=== PATIENT | male | born 1980 | race Caucasian/White ===

== ENCOUNTER 2021-03-26 12:19 | Inpatient (IN) | payer OTHER ==
[~2021-03-26] VITALS: Ht 188 cm; Wt 93.0 kg
--- NOTE | ~2021-03-26 | EEG ---
[facility] [place] [address] ELECTROENCEPHALOGRAM Name: WARD CHRISTOPHER Room #: 448-P ADM IN M.R.#: [id number] Admission: 03/26/21 Attend Phys: Nithya Santa Discharge: Date of : 84 Report #: [id number] THIS REPORT FOR: //name// DATE OF SERVICE: 03/31/2021 This patient was evaluated for the possibility of seizure. EEG was done by placing the electrode by standard 10-20 system of electrode placement. Both referential and sequential montages were used for recording. Background activity in this patient's EEG is about 9 Hz and 30 microvolt. Lot of muscle artifact is present. The patient became drowsy and that is associated with bilateral slowing. Photic stimulation is unremarkable. Throughout the record, no active epileptiform activity was noticed. IMPRESSION: This patient's EEG does not show any active epileptiform activity. By: 1405 1421 Omar Wooten MD /nt
[2021-03-26 12:35] VITALS: BP 147/85
[2021-03-26 13:19] LABS: ABSOLUTE NEUTROPHILS 5.6 thou/uL (1.4-8.2); HEMATOCRIT 36.7 % (42.0-52.0); HEMOGLOBIN 12.4 gm/dL (14.0-18.0); LYMPHOCYTES 20.8 % (24.0-44.0); MCHC 33.6 g/dL (28.0-37.0); MCV 86.2 fL (80.0-100.0); MONOCYTES 8.9 % (1.0-8.0); PLATELET COUNT 318 thou/uL (150-400); POLYS 67.3 % (36.0-66.0); RBC 4.26 mil/uL (4.50-6.00); RDW 14.5 % (10.5-14.5); WBC 8.3 thou/uL (4.0-11.0)
[2021-03-26 13:28] LABS: CALCIUM 8.9 mg/dL (8.5-10.1); POTASSIUM 3.7 mmol/L (3.5-5.1)
[2021-03-26 13:34] LABS: ALBUMIN 3.5 g/dL (3.4-5.0); TOTAL BILIRUBIN 0.3 mg/dL (0.2-1.0); TOTAL PROTEIN 7.6 g/dL (6.4-8.2)
[2021-03-26 14:05] LABS: AMP/METHAMP POSITIVE (Negative); BARBITURATES Negative (Negative); BENZODIAZEPINES Negative (Negative); COCAINE Negative (Negative); METHADONE Negative (Negative); OPIATES Negative (Negative); PCP Negative (Negative)
[2021-03-26 19:37] VITALS: BP 151/79
[2021-03-26 20:00] VITALS: BP 149/77
[2021-03-26 21:00] VITALS: BP 127/74
--- NOTE | 2021-03-27 02:54 | NUR ---
PT ADMITTED TO THE UNIT WITH C/O SWOLLEN LT ANKLE AND PAIN.PT CAME IN SEDATED AND UNABLE TO COMMUNICATE WITH STAFF.PT ASKED FOR PAIN MEDS AND TRAMADOL PRN GIVEN.PT GOT UP AGITATED AND ASKING FOR ANOTHER MED AT 0200.IT WAS NOT TIME FOR THE NEXT TRAMADOL AND MAURIZIO GRAYSON NOTIFIED AND FENTANYL ONETIME GIVEN ORDERED.PT C/O IMMEDIATELY OF FENTANYL NOT WORKING AND ASKED NURSE TO NOTIFY DR.MAURIZIO GRAYSON NOTIFIED.PT AGITATED AND PROMISING TO DO SOMETHING TO MAKE HIMSELF COMFORTABLE.PT POSITIVE FOR METH AND MARIJUANA.PIPELINE DISPATCHER NOTIFIED AND PIPELINE DISPATCHER SPOKE WITH PT ON HOW TO MANAGE HIS PAIN AND PT DENIED HAVING ANY MEDICATIONS WITH HIM. PT IS ON ROOM AIR.IV ACCESS ON RT FA SL.WILL CONTINUE TO MONITOR PER POC
[2021-03-27 08:50] VITALS: BP 120/65
[2021-03-27 15:05] VITALS: BP 156/65
--- NOTE | 2021-03-27 18:00 | NUR ---
Patient had a CT of left ankle completed today. He has voiced pain in left ankle 02/27 and has refused toradal and tylenol. Dr. Ramirez spoke with him today regarding pain medications and that toradol is what can be given to him. He is very upset and wanting Diualdid. He has been offered pain medication throughout shift and has refused each time. Tolerated IV ABT well.
[2021-03-27 20:13] VITALS: BP 134/76
--- NOTE | 2021-03-28 02:20 | NUR ---
ASSUMED PTR CARE 1900. PT IS ALERT AND ORIENTED X4. PT IS HAS +2 SWELLING TO THE LEFT ANKLE WITH A LITTLE ABRASIONS TO THE FOOT AND R TOE. PT C/O HOW INEFFECTIVE PO PAIN MEDS ARE AND WOULD PREFER IV PAIN MEDS. PT WAS INFORMED OF AVAILABLE PRN PIAN MEDS PER THE EMAR. PT IS WAS COOPERATIVE. SEIZURE PRECAUTIONS IN PLACE. BED ON LOWEST LOCKED POSITION WITH BED ALARM ON AND CALL LIGHT WITHIN REACH. WILL CONTINUE TO MONITOR.
[2021-03-28 07:23] VITALS: BP 140/91
--- NOTE | 2021-03-28 15:09 | NUR ---
At start of shift patient was yelling out in the hallway for nurse after nurse was in the room 15 mins prior, patient was told this is a hospital and he can use his call button to reach the nurse and that yelling in the halls is not the way to get her there. No issues after talking with patient this shift. [facility] called and confirmed that patient takes oxycodone 10 mg prn q8hrs and morphine 15mg q 12hrs prn at home. Dr. Ramirez notified of the medications and she wants him just to continue norco and toradol prn and notified of tomorrows surgery of hardware removal. IV nurse placed a new left forearm IV. NPO after midnight for left foot hardware removal. Vanco through tomorrow. Tolerating IV ABT well.
[2021-03-28 16:23] VITALS: BP 141/88
[2021-03-28 20:08] VITALS: BP 136/81
[2021-03-29 01:48] LABS: ABSOLUTE NEUTROPHILS 2.4 thou/uL (1.4-8.2); BASOPHILS 1.2 % (0.0-2.0); EOSINOPHILS 4.6 % (0.0-3.0); HEMATOCRIT 39.6 % (42.0-52.0); HEMOGLOBIN 12.9 gm/dL (14.0-18.0); LYMPHOCYTES 37.2 % (24.0-44.0); MCH 28.6 pg (26.0-34.0); MCHC 32.5 g/dL (28.0-37.0); MCV 87.8 fL (80.0-100.0); MONOCYTES 10.7 % (1.0-8.0); PLATELET COUNT 332 thou/uL (150-400); POLYS 46.3 % (36.0-66.0); RBC 4.51 mil/uL (4.50-6.00); WBC 5.1 thou/uL (4.0-11.0)
--- NOTE | 2021-03-29 02:06 | NUR ---
[facility] 1905. PT IS ALERT AND ORIENTED X4. PT IS CALM AND COOPERATIVE. PT WAS INFORMEED ABOUT BEING NPO AT MIDNIGHT ADN PT VERBALIZE UNDERSTANDING. PT IS COMPLIANT WITH NEW DIET ORDER. PT TOLERATING RA. MEDS GIVEN PER EMAR ODERS. VS ARE WITHIN NORMAL RANGE. FALL PRECAUTIONS IN PLACE WITH CALL LIGHT WITHIN REACH. WILL CONTINUE TO MONITOR.
--- NOTE | 2021-03-29 05:03 | HC ---
[facility] [place] [address] CONSULTATION Name: WARD CHRISTOPHER Room #: 458-P ADM IN M.R.#: [id number] Admission: 03/26/21 Attend Phys: Nithya Perry Discharge: Date of : 84 Report #: [id number] THIS REPORT FOR: cc: FAM - No family physician/PCP FAM - No family physician/PCP Orlando Cooley MD ~ DATE OF SERVICE: 03/28/2021 INFECTIOUS DISEASE CONSULTATION ATTENDING PHYSICIAN: Dr. Perry. REASON FOR EVALUATION: Left foot and ankle inflammatory process with severe pain going on for several weeks to months. HISTORY OF PRESENT ILLNESS: He notes 08/2020, apparently had a foot and ankle surgery. Since that time, he has had multiple issues where it became very painful. It is felt to have a secondary infection, had been treated with antibiotics. Over the course of last few hours prior to his admission, it became extremely painful. It is not clear that he had fevers or chills. Did note it was severe enough that he was unable to bear weight or ambulate. Did present to the emergency room. Evaluation was undertaken. Lactic acid is 0.7. Plain films of the foot and ankle showed prior internal fixation of the calcaneal fracture, diffuse soft tissue swelling about the left ankle. CPK was 271. Positive drug screen for amphetamine, methamphetamine and marijuana. Arterial and venous Dopplers were otherwise unremarkable. Coronavirus testing was negative. Blood cultures collected at time of admission were sterile thus far. CT imaging shows irregularity of the bone of the dorsal calcaneus, but cannot exclude osteomyelitis or septic arthritis. Sed rate was 25. He was initially on combination therapy with vancomycin and clindamycin. Presently, he complains of severe pain. ALLERGIES: LISTED TO DILANTIN, CARBAMAZEPINE, OXCARBAZEPINE, DULOXETINE. CURRENT MEDICATIONS: Include Ibuprofen, Toradol, vancomycin, clindamycin, levetiracetam, enoxaparin, tramadol, zolpidem, ondansetron as needed. PAST MEDICAL HISTORY: Notable for seizure disorder. SOCIAL HISTORY: Denies ethanol or tobacco, ____ polysubstance illicit drug use. FAMILY HISTORY: Noncontributory. REVIEW OF SYSTEMS: Otherwise, unremarkable. PHYSICAL EXAMINATION: [address] [address] CONSULTATION Name: WARD CHRISTOPHER Room #: 458-P [facility] IN ..#: [id number] Admission: 03/26/21 Attend Phys: Nithya Perry Discharge: Date of : 84 Report #: [id number] GENERAL: He is in moderate distress secondary to the heel pain. He is generally lucid, appears to be well nourished. VITAL SIGNS: Temperature 97.7, pulse 75, respirations 16, blood pressure 140/91. SKIN: Warm, extensive tattoos. HEENT: Normocephalic. Extraocular muscles intact. NECK: Supple. LUNGS: Generally clear to auscultation bilaterally. HEART: Regular. I do not appreciate a murmur. ABDOMEN: Soft, nontender. No peritoneal signs. EXTREMITIES: Left lower extremity was evaluated. His significant swelling is associated with erythema. It is exquisitely tender to touch. There is a superficial abrasion area. There was no draining from it. GENITOURINARY AND RECTAL: Deferred. LABORATORY DATA: Sed rate of 25. CT as described above. CRP of 77.7. Blood cultures sterile thus far. Electrolytes: Sodium 138, potassium 3.7, chloride 104, bicarbonate 25, anion gap of 9, BUN and creatinine 23 and 1.0. LFTs unremarkable. Albumin 3.5, total protein 7.6. CBC: White count of 8.3, H and H 12.4 and 36.7, platelets of 318. ASSESSMENT AND PLAN: Left distal lower extremity inflammatory process. has skin and soft tissue infection, would be concerned about a deeper infection including the bone. Given the repeated nature of the episodes due to hardware, is unable to undergo MRI. We will continue empiric therapy, presumed gram-positive etiology. I think it is reasonable and see how he does clinically. Pain is a significant issue with him. May benefit from having a surgical evaluation. Thank you for allowing me to participate. <ELECTRONICALLY SIGNED> By: Orlando Cooley MD 03/29/21 0503 0656 [id number] Orlando Cooley MD /nt
--- NOTE | 2021-03-29 11:11 | NUR ---
VAT CONSULTED FOR PICC PLACEMENT. RIGHT UPPER BASILIC PICC TRIMMED 43CM/1CM EXTERNAL. TIP LOCATION VERIFIED WITH [employer] TECHNOLOGY. PT TOLERATED WELL. RELEASED FOR USE, PER HOSPITAL VASCULAR ACCESS POLICY.
--- NOTE | 2021-03-29 13:43 | NUR ---
PT ADMITTED RELATED TO CELLULITIS. CM REVEIWED CHART AND SPOKE WITH CARE TEAM. CM MET WITH PT AT BEDSIDE THIS DAY. PT APPEARES TO BE A&O X4. CM ROLE INTRODUCED. PT INDICATE THAT HE HAD BEEN STAYING AT [facility]. 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 PT INDICATED HE PCP IS DR. AVILEZ AND HE USES A [facility] FOR HIS PERSCRIPTIONS. PT INDICATED THAT HE HAD BEEN CLEAN BUT THAT HE DID METH DAY OF ADMIT SO THAT HE COULD GET INTO A REHAB SO HE COULD GET INTO A SENIOR CARE HOUSE. PT INDICATED THAT HE HAS NOTIFIED HIS VALVE TECHNICIAN OF HIS ADMISSION. PT WAS COMPLAINING OF HIS RASTAFARIAN LOCKING AND NEEDING STRONGER PAIN MEDS. CM NOTIFIED PT'S NURSE WHO HAD REACHED OUT TO HOSPITALIST. PT THREATENING TO LEAVE AMA.
--- NOTE | 2021-03-29 15:10 | NUR ---
Assumed pt care at 7am.Pt in bed very angry and frustrated about pain med. Emotional support given.Dr Ramirez notified and order noted.Fentanyl ivp given with relief.Pt went for mri and returned to room after one hour. At 1510,pt left for surgery per bed in stable condition.Will continue to monitor.
[2021-03-29 23:00] VITALS: BP 148/82
[2021-03-29 23:15] VITALS: BP 134/83
[2021-03-29 23:30] VITALS: BP 143/82
[2021-03-29 23:45] VITALS: BP 137/76
[2021-03-30] VITALS (44 sets, daily range): BP systolic 99–144; BP diastolic 43–91
--- NOTE | 2021-03-30 07:46 | NUR ---
ASSUME CARE 2300 FROM PACU. PT/VITALS STABLE. COMSISTENT PAIN INDICATED WITH MODERATE RELIEF FROM PAIN MEDICATION. TOLERATES ACTIVITY MODERATEY. PT IS CALM AND COOPERATIVE. PRECEDEX TITRATED DOWN AND TURED OFF ABOUT 0530 THIS AM. PT IS DOING FINE ON PAIN MEDS AND NO COMBATIVENESS NOTED. PLAN IS TO TRANSFER PT TO A LESS CRITICAL FLOOR TODAY. WILL CONTINUE TO MONITOR AND FOLLOW WITH POC
--- NOTE | 2021-03-30 07:52 | NUR ---
0705HRS - DURING ASSESSMENT, PT DEMANDED BREAKFAST AND A SODA.
--- NOTE | 2021-03-30 09:32 | NUR ---
Discussed during am unite rounds. possible able to move out of icu today.
--- NOTE | 2021-03-30 11:35 | NUR ---
1100HRS - PT'S FATHER CALLED. WAS UPDATED ON PT'S STATUS.
--- NOTE | 2021-03-30 15:34 | O ---
[facility] [place] [place] [address] OPERATIVE REPORT Name: WARD CHRISTOPHER Room #: 246-P ADM IN M.R.#: [id number] Admission: 03/26/21 Attend Phys: Nithya Perry Discharge: Date of : 84 Report #: [id number] THIS REPORT FOR: cc: FAM - No family physician/PCP FAM - No family physician/PCP Earl Alston MD ~ DATE OF SERVICE: 03/29/2021 SERVICE: Orthopedics. FACILITY: [facility]. SURGEON: Earl Alston MD ASSISTANTS: 1. Russell Portillo. 2. Tanvi Gomez NP PREOPERATIVE DIAGNOSES: 1. Retained hardware, left calcaneus. 2. Status post open reduction internal fixation, left calcaneus fracture. 3. Posttraumatic arthritis, left subtalar joint. 4. Septic arthritis, left subtalar joint. 5. Cellulitis, left heel. 6. Polysubstance abuse. POSTOPERATIVE DIAGNOSES: 1. Retained hardware, left calcaneus. 2. Status post open reduction internal fixation, left calcaneus fracture. 3. Posttraumatic arthritis, left subtalar joint. 4. Septic arthritis, left subtalar joint. 5. Cellulitis, left heel. 6. Polysubstance abuse. PROCEDURES: 1. Irrigation and debridement, left subtalar joint and calcaneus. 2. Hardware removal, left calcaneus. COMPLICATIONS: None. DRAINS: None. SPECIMENS: 1. Subtalar joint fluid for culture. 2. Subtalar joint tissue for culture. 3. Subtalar joint tissue for permanent pathology. [facility] [address] [place] [address] OPERATIVE REPORT Name: WARD CHRISTOPHER Room #: 246-P ADM IN M.R.#: [id number] Admission: 03/26/21 Attend Phys: Nithya Perry Discharge: Date of : 84 Report #: [id number] HISTORY: Patient is a 40-year-old male who sustained a calcaneal fracture in 08/2020 and underwent open reduction internal fixation at [facility] in [place]. He migrated to [facility] looking to meet in person with his production officer when a recurrent episode of a heel cellulitis consistent with deep infection occurred and he presented to [facility]. He had previously been treated in [place], apparently with IV antibiotics, but the infection had persisted on 2 or 3 episodes. He was admitted to the hospital. 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 We did discuss that he had posttraumatic arthritis as well and that this could be the primary etiology for the advanced imaging findings; however, with the risk of continued infection plans were made for irrigation and debridement with hardware removal. Risks, benefits, alternatives and indications were discussed with him in detail. Risks include but not limited to pain, bleeding, infection, injuring nerves or blood vessels, persistent pain despite surgical intervention, failure of the procedure, need for further surgery, arthritis as well as complications related to anesthesia. Despite the risks, he wished to proceed. PROCEDURE IN DETAIL: After left lower extremity was correctly identified in the preoperative holding area as the operative extremity, the patient was taken to the operating room where general anesthesia was induced without complications. He was padded appropriately. Prophylactic antibiotics were already being administered during the hospitalization. Tourniquet was applied to left leg. Left lower extremity was prepped and draped in standard sterile fashion. It was exsanguinated via elevation and then tourniquet was inflated. The previous lateral incision on the hindfoot was utilized and full thickness skin flaps were developed down to the calcaneus and the subtalar joint, which was opened and then culture was taken of the fluid. The 3 threaded pins were removed. The small frag screw was removed after it was exposed. Debridement was performed of the subtalar joint with irrigation as well as a debridement of the soft tissue synovitis. Some tissue was sent for culture as well as pathology. He had 3 headless compression screws that were present as well and so these were exposed initially with stab incisions, the first was removed successfully. The second 2 were buried beneath the bone and could not be successfully removed in a percutaneous fashion, so the stab incisions were extended longitudinally and dissection was taken down to the bone. A curet and gouge were used to resect the bone around the head of the screw and then they were eventually able to be backed out. These wounds were then thoroughly irrigated again and fluid was lavaged through the joint out the calcaneal incisions. There was no purulence [address] [address] OPERATIVE REPORT Name: WARD CHRISTOPHER Room #: 246-P [facility] IN M.R.#: [id number] Admission: 03/26/21 Attend Phys: Nithya Perry Discharge: Date of : 84 Report #: [id number] present. There were no abscess cavities. The deep layers were closed with 2-0 PDS. The skin was closed with 3-0 nylon. Sterile dressing was applied followed by well-padded compression wrap. The patient was awakened from anesthesia and taken from the operating room in stable condition. No complications. All counts were recorded as correct. <ELECTRONICALLY SIGNED> By: Earl Alston MD 03/30/21 1534 1758 2047 Earl Alston MD /nt
--- NOTE | 2021-03-30 19:13 | NUR ---
1910HRS - PT TRANSFERED TO [facility] ESCORTED BY THIS TOLL PATROLMAN.
[2021-03-31 00:08] VITALS: BP 136/77
--- NOTE | 2021-03-31 03:33 | NUR ---
PT A&OX4. TRANSFERRED FROM ICU. C/O PAIN IN LEFT FOOT AND REQUESTING PAIN MEDS ROUND THE CLOCK EDUCATED ON PAIN CONTROL. ICE BAG PLACE ON FOOT. PICC LINE INTACT AND VANCO GIVEN. PT UP NWB ON THAT FOOT. DENIES N/V. FOOT DERESSING C/D/I NOT MANAGING PAIN WELL. CALL LIGHT AT REACH AND WILL CONT TO MONITOR.
[2021-03-31 03:45] VITALS: BP 139/84
--- NOTE | 2021-03-31 08:42 | NUR ---
REEL STRIPPER ACTIVATED FOR WITNESSED SEIZURE. ON ARRIVAL, PT DID NOT APPEAR POST-ICTAL. AT BEDSIDE ASSESSING PATIENT. NO NEW ORDERS RECEIVED. SEIZURE PRECAUTIONS INITIATED. SEE RAPID RESPONSE DOCUMENTATION FOR ADDITIONAL DETAILS AND INTERVENTIONS.
--- NOTE | 2021-03-31 10:28 | NUR ---
Upon nurse entering room, patient was heard out in the hallway crying,moaning out in pain. Nurse assessed patient and pain level 10/10 left ankle and he called someone while the nurse was in the room leaving a message "I need that shit bro, I thought I could do it but I cant, so come get me" then hung up. Nurse went to get percocet and ibuprofen and entering patients room about 0815 patient was in his bed and she began scanning meds and patient started to have what looked like a tonc clonic seizure-full body shaking, mouth clincth down, red in face and chest, sputum coming out of mouth, nurse called out patients name and turned him to his right side, the seizure went on for about 20 seconds and she called out to her [employer] Silviano to call a rapid. Patient was confused after the seizure for a few mintues then he was able to answer questions corretly. All 4 siderails up and padded, o2 applied, suction at bedside. Dr. Ramirez came in during the rapid and ordered valium. Patient is now currently resting in his bed.
--- NOTE | 2021-03-31 14:42 | NUR ---
ON-GOING ASSESSMENT: CM REVIEWED CHART. ID IS FOLLOWING PATIENT AND PT REMAINS ON IV VANCO AT THIS TIME PENDING FUTHER CULTURES. CM WILL CONTINUE TO FOLLOW TO ASSIST NEEDED.
--- NOTE | 2021-03-31 19:46 | NUR ---
Dr. Wooten came to the nurses desk at 1520 and ask where is the patient, nurse went to his room and looked in the bathroom and the patient was gone. Nurse was last in at 1422 and gave him a pain medication and his bed alarm was on. Nurse called security @ 1523 and notified of patient missing, still has his picc line and is a substances abuser. 1527 nurse tried to call Lizzette, no answer. Nurse then called roundhouse supervisor Raiza @ 1530 and notified her and she said to called the DR. Nurse paged Dr. Ramirez @ 1533. Call back from Dr. Ramirez @ 1538 and she to keep her informed. Security found patient @ 1547 outside hospital along the sidewalk still on [facility]'s property dripping in sweat in his wheelchair with his belonings on his lap. [address] Ramirez to notified her security found him. Dr. Ramirez called right back and patient and security were at the nurses station. Patient states he left to go to another hospital where his pain is taken serious. Nurse informed patient pain medication was given to him @ 1422. Dr. Figueroa said patient can make the choice to stay or leave AMA and nurse pull picc line. Ashley Cintron call Dr. Richards to confirm if patient had to readmit through ED or not. It was confirned that patient does not have to go through ED. Patients room changed from 448 TO 446 NURSES STATION. At shift change 1850 PCT notified nurse that patient is on his cellphone talking to someone about how hes going to leave to hospital right now. Nurse went into his room and asked him are you wanting to leave and he said yes to pull the picc line that his brother is on his ways to get him. Patient then said his on parole in [place] and is not suppose to leave the [facility]. Dr. Ramirez and housevisor notified of him wanting to leave ama. Nurse had patient sign AMA paper and pulled his right upper arm picc, appiled gauze and pressure and tape and he wheeled him self of the unit at 1905. Incident report completed.
--- NOTE | 2021-04-01 08:08 | PATH ---
[facility] [address] [place] [address] PATHOLOGY RPT PROCEDURE Name: LOUIS CRHISTOPHER Room #: 446-P DIS IN M.R.#: [id number] Admission: 03/26/21 Date of : 84 Discharge: 03/31/21 Report #: [id number] Path Case #: [id number] [facility] Accession Number: [id number] . 01 Material submitted: . foot - SUBTALAR JOINT-PERMANENT. Modifiers: SUBTALAR . 01 Clinical history: . REMOVE IMPLANT PAINFUL HARDWARE L HEEL . 02 Diagnosis: Fibrovascular connective tissue, subtalar joint-permanent, removal: - Marked acute and chronic inflammation, history of painful hardware left heel. . (IUV:mml; 03/31/2021) QLM 03/31/2021 1555 Local . 02 Electronically signed: . Alethea Murphy MD, Pathologist NPI- [id number] . 01 Gross description: . The specimen is received in formalin, labeled "Polasky, Louis, subtalar, joint-permanent" and consists of 3 bell-garrison rubbery irregular tissues aggregating 2.0 x 1.1 x 0.4 cm. The 2 largest tissues are sectioned. The specimen is submitted entirely in A1. (DEERING; 03/30/2021) DKA/DKA 03/30/2021 1129 Local . 02 Pathologist provided ICD-10: M79.89, T84.84XA . 02 CPT . 418446 Specimen Comment: A courtesy copy of this report has been sent to [phone] Specimen Comment: [id number] Specimen Comment: Report sent to ,DR MADRIGAL / DR KING Performed at: [address], [place], [place] [id number] MD Shoaib Krueger MD Phone: [phone] Performed at: [address] [id number] MD Alethea Murphy MD Phone: [phone]
== END 2021-03-31 19:10 | disposition left against medical advice (07) | DRG 504 ==
LOC: ER 12:19 → EROBS 19:11 → 4W 20:29 → ICU 03-29 23:06 → 4S 03-30 19:08
PROVIDERS: Nurse Practitioner Family; Orthopaedic Surgery Sports Medicine; ADMIT Hospitalist; ATTEND Hospitalist
PROC: 05HY33Z Insertion of Infusion Device into Upper Vein, Percutaneous Approach (ICD-10-PCS; principal; 2021-03-29)
PROC: 0SBJ0ZZ Excision of Left Tarsal Joint, Open Approach (ICD-10-PCS; principal; 2021-03-29)
PROC: 0SPGX5Z Removal of External Fixation Device from Left Ankle Joint, External Approach (ICD-10-PCS; principal; 2021-03-29)
DX: M00.9 Pyogenic arthritis, unspecified (principal); L03.116 Cellulitis of left lower limb; F15.10 Other stimulant abuse, uncomplicated; Z53.29 Procedure and treatment not carried out because of patient's decision for other reasons; Z20.822 Contact with and (suspected) exposure to COVID-19; G40.909 Epilepsy, unspecified, not intractable, without status epilepticus; Z88.8 Allergy status to other drugs, medicaments and biological substances; Z87.820 Personal history of traumatic brain injury; Z71.51 Drug abuse counseling and surveillance of drug abuser
CPT/HCPCS: 10040; 10078; 10102; 10204; 27000; 50010; 50101; 50386; 51412; 56524; 56525; 57092; 62110; 62900; 64039; 64043; 65060; 70005